=== PATIENT | male | born 1970 | race Hispanic/Latino ===

== ENCOUNTER 2023-08-07 05:20 | Observation (INO) | payer BC, OTHER ==
[~2023-08-07] VITALS: Ht 182.9 cm; Wt 115.7 kg
[2023-08-07 05:37] LABS: APPEARANCE,URINE CLEAR (CLEAR); BILIRUBIN,URINE NEGATIVE (NEGATIVE); COLOR,URINE LIGHT-YELLOW (YELLOW); GLUCOSE, URINE (UA) NEGATIVE (NEGATIVE); KETONES,URINE NEGATIVE (NEGATIVE); LEUKOCYTE ESTERASE ,URINE NEGATIVE Leu/uL (NEGATIVE); NITRATE,URINE NEGATIVE (NEGATIVE); OCCULT BLOOD,URINE NEGATIVE (NEGATIVE); PROTEIN,URINE NEGATIVE (NEGATIVE); UROBILINOGEN,URINE 0.2 mg/dL (0.2-1.0)
[2023-08-07 05:38] LABS: ADD UA MICROSCOPIC NO
[2023-08-07 05:47] LABS: BASOPHILS # (AUTO) 0.01 K/uL (0.00-0.20); BASOPHILS % (AUTO) 0.1 % (0.0-5.0); EOSINOPHILS # (AUTO) 0.09 K/uL (0.00-0.70); EOSINOPHILS % (AUTO) 1.1 % (0.0-8.0); HEMATOCRIT 45.8 % (42-54); IMMATURE GRANULOCYTE ABSOLUTE 0.03 K/uL (0-1); LYMPHOCYTES # (AUTO) 0.8 K/uL (1.0-4.8); LYMPHOCYTES % (AUTO) 10.4 % (21.0-51.0); MEAN CORPUSCULAR HEMOGLOBIN 28.9 pg (27.0-33.0); MEAN CORPUSCULAR HGB CONC 33.6 g/dL (32.0-36.0); MEAN CORPUSCULAR VOLUME 85.9 fL (79-99); MONOCYTES # (AUTO) 0.4 K/uL (0.1-1.0); MONOCYTES % (AUTO) 5.1 % (3.0-13.0); NEUTROPHILS # (AUTO) 6.5 K/uL (1.8-7.7); NEUTROPHILS % (AUTO) 82.9 % (40.0-77.0); PLATELET COUNT (AUTO) 208 K/uL (130-400); RED BLOOD CELL COUNT(AUTO) 5.33 MIL/uL (4.50-6.20); RED CELL DISTRIBUTION WIDTH 13.6 % (11.0-15.5); WHITE BLOOD COUNT (AUTO) 7.9 K/uL (4.8-10.8)
[2023-08-07] MEDS ORDERED: KETOROLAC 15MG/ML VIAL (15MG/ML) IV ONE (06:00)
[2023-08-07] MEDS ORDERED: FAMOTIDINE 20MG VIAL IV ONE (06:00)
[2023-08-07 06:05] LABS: AMPHET/METH SCREEN,URINE NEGATIVE (NEGATIVE); BARBITURATE SCREEN, URINE NEGATIVE (NEGATIVE); BENZODIAZEPINES SCREEN,URINE NEGATIVE (NEGATIVE); CANNABINOID SCREEN,URINE NEGATIVE (NEGATIVE); COCAINE SCREEN,URINE NEGATIVE (NEGATIVE); OPIATE SCREEN,URINE NEGATIVE (NEGATIVE); PHENCYCLIDINE SCREEN,URINE NEGATIVE (NEGATIVE)
[2023-08-07 06:09] LABS: ALBUMIN 3.8 g/dL (3.5-5.0); BILIRUBIN,TOTAL 0.5 mg/dL (0.2-1.0); POTASSIUM 3.9 mmol/L (3.5-5.1)
[2023-08-07] MEDS ORDERED: ACETAMINOPHEN 325 MG TAB PO PRN ×2 (10:00)
[2023-08-07] MEDS ORDERED: ONDANSETRON 4MG INJ IV PRN (10:00)
[2023-08-07] MEDS ORDERED: CEFTRIAXONE 1G VIAL 1 GM in 0.9%NACL 50ML 50 ML IV SCH (10:00)
[2023-08-07] MEDS ORDERED: MORPHINE 2 MG SYG IVP PRN (10:00)
[2023-08-07] MEDS ORDERED: LACTATED RINGERS 1000ML 1,000 ML IV ONE (10:38)
[2023-08-07] MEDS: LACTATED RINGERS 1000ML 1,000 ML IV SCH ×2 (11:12→18:52)
[2023-08-07] MEDS: CEFTRIAXONE 1G VIAL IVPB SCH (11:15)
[2023-08-07 14:15] VITALS: BP 139/87; PULSE 72; RESP 20
[2023-08-07 14:37] LABS: HEMOGLOBIN A1C 5.8 % (4.0-6.0)
[2023-08-07 14:43] LABS: CHOLESTEROL 207 mg/dL (<200); HDL CHOLESTEROL 49 mg/dL (29-71); LDL DIRECT 138 mg/dL (0-99); TRIGLYCERIDES 73 mg/dL (30-200)
[2023-08-07 20:00] VITALS: BP 137/82; PULSE 80; RESP 18; O2SAT 96
[2023-08-07] MEDS: FAMOTIDINE 20MG VIAL IV SCH (20:28)
[2023-08-07 23:45] VITALS: BP 124/77; PULSE 76; RESP 18
[2023-08-08] VITALS (24 sets, daily range): BP systolic 96–146; BP diastolic 64–94; PULSE 64–100; RESP 12–20; O2SAT 97
[2023-08-08] MEDS: LACTATED RINGERS 1000ML 1,000 ML IV SCH ×2 (06:11→16:00)
[2023-08-08 06:33] LABS: BASOPHILS # (AUTO) 0.01 K/uL (0.00-0.20); BASOPHILS % (AUTO) 0.2 % (0.0-5.0); EOSINOPHILS # (AUTO) 0.24 K/uL (0.00-0.70); EOSINOPHILS % (AUTO) 4.6 % (0.0-8.0); HEMATOCRIT 42.2 % (42-54); IMMATURE GRANULOCYTE ABSOLUTE 0.03 K/uL (0-1); LYMPHOCYTES # (AUTO) 1.2 K/uL (1.0-4.8); LYMPHOCYTES % (AUTO) 23.1 % (21.0-51.0); MEAN CORPUSCULAR HEMOGLOBIN 29.6 pg (27.0-33.0); MEAN CORPUSCULAR HGB CONC 33.4 g/dL (32.0-36.0); MEAN CORPUSCULAR VOLUME 88.7 fL (79-99); MONOCYTES # (AUTO) 0.4 K/uL (0.1-1.0); MONOCYTES % (AUTO) 7.6 % (3.0-13.0); NEUTROPHILS # (AUTO) 3.4 K/uL (1.8-7.7); NEUTROPHILS % (AUTO) 63.9 % (40.0-77.0); PLATELET COUNT (AUTO) 164 K/uL (130-400); RED BLOOD CELL COUNT(AUTO) 4.76 MIL/uL (4.50-6.20); RED CELL DISTRIBUTION WIDTH 13.4 % (11.0-15.5); WHITE BLOOD COUNT (AUTO) 5.3 K/uL (4.8-10.8)
[2023-08-08 06:51] LABS: BILIRUBIN,TOTAL 0.6 mg/dL (0.2-1.0); CREATININE 1.1 mg/dL (0.5-1.5); POTASSIUM 4.1 mmol/L (3.5-5.1); TOTAL PROTEIN, SERUM 6.5 g/dL (6.0-8.3)
[2023-08-08] MEDS: FAMOTIDINE 20MG VIAL IV SCH ×2 (09:09→21:09)
[2023-08-08] MEDS: CEFTRIAXONE 1G VIAL IVPB SCH (13:46)
[2023-08-08] MEDS ORDERED: SUCCINYLCHOLINE 200MG/10ML SYR ONE (18:02)
[2023-08-08] MEDS ORDERED: ROCURONIUM 10MG/1ML SYR 10 MG/ML ML ONE (18:03)
[2023-08-08] MEDS ORDERED: PROPOFOL 10 MG/ML 20ML VIAL IV ONE (18:03)
[2023-08-08] MEDS ORDERED: FENTANYL CITRATE PF 50 MCG/1 ML 2ML VIAL ONE (18:03)
[2023-08-08] MEDS ORDERED: MIDAZOLAM HCL 1 MG/ML 2ML VIAL ONE (18:03)
[2023-08-08] MEDS ORDERED: BUPIVACAINE/PF 0.5% 30ML VIAL ONE (18:26)
[2023-08-08] MEDS ORDERED: BUPIVACAINE/PF 0.5% 10ML VIAL ONE (18:33)
[2023-08-08] MEDS ORDERED: GLYCOPYRROLATE 1 MG/5 ML SYRINGE ONE (19:04)
[2023-08-08] MEDS ORDERED: NEOSTIGMINE 5MG/5ML SYR IV ONE (19:34)
[2023-08-08] MEDS ORDERED: ONDANSETRON 4MG INJ ONE (19:38)
[2023-08-08] MEDS ORDERED: MEPERIDINE-PF 25 MG/ML SYG ONE (19:38)
[2023-08-08] MEDS ORDERED: KETOROLAC 30MG VIAL (30MG/ML) ONE (19:39)
[2023-08-09] VITALS (7 sets, daily range): BP systolic 98–134; BP diastolic 62–73; PULSE 82–96; RESP 16–18; O2SAT 100
[2023-08-09] MEDS: LACTATED RINGERS 1000ML 1,000 ML IV SCH (01:03)
[2023-08-09 05:10] LABS: BASOPHILS # (AUTO) 0.02 K/uL (0.00-0.20); BASOPHILS % (AUTO) 0.3 % (0.0-5.0); EOSINOPHILS # (AUTO) 0.05 K/uL (0.00-0.70); EOSINOPHILS % (AUTO) 0.7 % (0.0-8.0); HEMATOCRIT 36.8 % (42-54); IMMATURE GRANULOCYTE ABSOLUTE 0.03 K/uL (0-1); LYMPHOCYTES # (AUTO) 0.9 K/uL (1.0-4.8); MEAN CORPUSCULAR HEMOGLOBIN 29.2 pg (27.0-33.0); MEAN CORPUSCULAR HGB CONC 32.9 g/dL (32.0-36.0); MEAN CORPUSCULAR VOLUME 88.7 fL (79-99); MONOCYTES # (AUTO) 0.5 K/uL (0.1-1.0); MONOCYTES % (AUTO) 6.4 % (3.0-13.0); NEUTROPHILS # (AUTO) 5.7 K/uL (1.8-7.7); NEUTROPHILS % (AUTO) 79.2 % (40.0-77.0); PLATELET COUNT (AUTO) 187 K/uL (130-400); RED BLOOD CELL COUNT(AUTO) 4.15 MIL/uL (4.50-6.20); RED CELL DISTRIBUTION WIDTH 13.5 % (11.0-15.5); WHITE BLOOD COUNT (AUTO) 7.2 K/uL (4.8-10.8)
[2023-08-09 05:24] LABS: ALBUMIN 2.8 g/dL (3.5-5.0); BILIRUBIN,TOTAL 0.5 mg/dL (0.2-1.0); POTASSIUM 4.3 mmol/L (3.5-5.1); TOTAL PROTEIN, SERUM 6.1 g/dL (6.0-8.3)
[2023-08-09] MEDS: FAMOTIDINE 20MG VIAL IV SCH (09:32)
[2023-08-09] MEDS: CEFTRIAXONE 1G VIAL IVPB SCH (11:30)
[2023-08-09] MEDS ORDERED: AMOX1TAB16 PO (15:25)
== END 2023-08-09 16:10 | disposition home or self-care (01) ==
LOC: EDH 05:20 → UNDOADMIN 05:21 → EDHIP 05:21 → INTOOBSV 09:50 → 3AH 14:15
PROVIDERS: ADMIT Hospitalist; ATTEND Hospitalist
DX: K80.42 Calculus of bile duct with acute cholecystitis without obstruction (principal); E87.1 Hypo-osmolality and hyponatremia; E87.8 Other disorders of electrolyte and fluid balance, not elsewhere classified; R73.9 Hyperglycemia, unspecified; R11.2 Nausea with vomiting, unspecified; K82.1 Hydrops of gallbladder; E66.9 Obesity, unspecified; E78.00 Pure hypercholesterolemia, unspecified; N21.0 Calculus in bladder; Z68.34 Body mass index [BMI] 34.0-34.9, adult; Z79.899 Other long term (current) drug therapy
CPT/HCPCS: 96374; 96376 ×3; 96361 ×3; 96375; 99285; 83036; 80061; 80053 ×3; 80305; 83690; 85025 ×3; 81003; 36415 ×3; 74176; 76705; 47562; 88304; 71045; G0378 ×51; J7120 ×3; J3490 ×6; J2270; J0696 ×2; J2405 ×2; J1885 ×2; A4606; A4344; A4649 ×2; J3010; J0330; J2710; J0665 ×2; J2250; J2704; J2175; A5113; C1769 ×3